=== PATIENT | male | born 1935 | race Caucasian/White ===

== ENCOUNTER → 2020-11-09 | Outpatient (CLI) | payer MEDICARE, BC ==
[~2020-11-09] MED LIST: ANTIVERT 12.512.5 MG PO; ANTIVERT 25MG T25 MG PO; ECOTRIN81 MG PO; FISH OIL 500 M1 EAC3 PO; GARLIC1000 MG PO; PRINIVIL20 MG PO; VITAMIN B-121000 MCG PO; VITAMIN C1000 MG PO; ZINC PO; ZOCOR20 MG PO
== END ==
LOC: KOH-I 08:06
DX: M51.36 Other intervertebral disc degeneration, lumbar region (principal); M48.061 Spinal stenosis, lumbar region without neurogenic claudication; M51.27 Other intervertebral disc displacement, lumbosacral region
CPT/HCPCS: 72148